=== PATIENT | female | born 1990 | race Caucasian/White ===

== ENCOUNTER 2017-03-12 05:00 | Inpatient (IN) ==
[2017-03-12] MEDS ORDERED: Naloxone 0.4 MG/ML INJ IVP PRN ×2 (05:20→23:22)
[2017-03-12] MEDS ORDERED: Famotidine 20 MG/2 ML VIAL IVP PRN (05:20)
[2017-03-12] MEDS ORDERED: miSOPROStol 25 MCG TABLET PO PRN (05:20)
[2017-03-12] MEDS ORDERED: Metoclopramide 10 MG/2 ML VIAL IVP PRN (05:20)
[2017-03-12] MEDS ORDERED: *HR* Nalbuphine 20 MG/ML AMPUL IVP PRN (05:20)
[2017-03-12] MEDS ORDERED: Ringers Solution, Lactated 1,000 ML IVC SCH (05:30)
[2017-03-12 05:56] LABS: Basophils # 0.1 K/mcL (0.0-0.2); Basophils % 0.5 %; Eosinophils # 0.2 K/mcL (0.0-0.6); Eosinophils % 1.4 %; Hematocrit 44.4 % (35.3-44.9); Hemoglobin 15.3 g/dL (11.5-15.4); Immature Granulocytes % 0.6 % (0-4); Immature Platelets 8.3 % (1.1-6.1); Lymphocytes # 2.3 K/mcL (0.6-4.6); Mean Corpuscular HGB Conc 34.5 g/dL (31.6-35.5); Mean Corpuscular Hemoglobin 30.9 pg (28.0-33.3); Mean Corpuscular Volume 89.7 fL (83.0-100.0); Monocytes # 0.9 K/mcL (0.0-1.3); Monocytes % 7.8 %; Neutrophils # 7.6 K/mcL (1.6-8.9); Platelet Count 166 K/mcL (140-400); Red Blood Count 4.95 M/mcL (3.82-4.97); Red Cell Distribution Width 13.4 % (11.5-14.5); Segmented Neutrophils % 68.7 %
[2017-03-12 06:05] LABS: Amphetamine Screen,Urine Negative ng/mL (Cutoff=1000); Barbiturate Screen,Urine Negative ng/mL (Cutoff=200); Benzodiazepines Screen,Urine Negative ng/mL (Cutoff=200); Cannabinoid Screen,Urine Positive ng/mL (Cutoff = 50); Cocaine Screen,Urine Negative ng/mL (Cutoff= 300); Opiate Screen,Urine Negative ng/mL (Cutoff=300); Phencyclidine Screen,Urine Negative ng/mL (Cutoff=25)
[2017-03-12 06:08] LABS: Alanine Aminotransferase 13 Units/L (7-52); Aspartate Amino Transferase 27 Units/L (13-39); BUN/Creatinine Ratio 14 (6-26); Blood Urea Nitrogen 13 mg/dL (6-20); Lactate Dehydrogenase 230 Units/L (140-271); Uric Acid 6.5 mg/dL (2.3-7.6); eGFR For African Americans > 60 (> 60); eGFR For Non-African Americans > 60 (> 60)
--- NOTE | 2017-03-12 09:11 | OB/GYN History & Physical ---
Date of Encounter: 03/12/17 Time of Encounter: 09:06 Assessment and Plan (1) 40 weeks gestation of Current visit: Yes Status: Acute Induction of labor (2) Chronic hypertension affecting Current visit: Yes Status: Acute Blood pressures exacerbated on arrival. Controlled with increased dose of labetalol. PIH labs normal. Close observation for breakthrough preeclampsia. If elevated pressures continue, patient will need magnesium prophylaxis (3) Gestational diabetes mellitus (GDM) affecting first Current visit: Yes Status: Acute The patient has been well controlled on diet (4) Tobacco dependence Current visit: Yes Status: Acute Patient has been advised on smoking cessation and has decreased the amount of tobacco use but has been unable to quit. She is interested in a nicotine patch (5) Marijuana use Current visit: Yes Status: Acute Patient does not admit to marijuana use when she asked drug screening questions in front of family. Her tox screen is positive for marijuana. The patient has been advised of the cord stat process and will get a social work consult History of Present Illness Chief complaint: IOL @ 40w1d CHTN/GDM HPI: Ms. Hutchins is a 26 year old female G!P0 at 40 weeks and 1 day who presents to labor and delivery for induction of labor. Her has been complicated by chronic hypertension and diet-controlled gestational diabetes, tobacco use, and short maternal stature. On arrival she reported a new onset of headache and had elevated blood pressures. She reports never having a headache prior to this. She had been taking her labetalol every 12 hours 100 mg. She never had elevated blood pressures before but she was 170's/110's on arrival. She was given 200 mg of labetalol by mouth and her blood pressures have adjusted downward into the normal range. She reports her headache has resolved. She was given by mouth Cytotec per orders and is having contractions but she does not report being uncomfortable with. She reports the fetus has been active and she denies any vaginal bleeding or loss of fluid since her last exam. Past Med Surg Social Fam HX - Past Medical History Attestation: Yes The following information was validated with the patient. Source: patient, old records reviewed Medical history: hypertension Psychiatric history: no psych history - Past Surgical History Surgical History: herniorrhaphy, other ([place] teeth) - Social History Smoking Status: Current every day smoker Packs per day: less than 1/2 pack daily Smokeless Tobacco Status: No Alcohol use: none Drug use: none Occupational status: employed Current living situation: Home - Independent Activity Level: Independent ambulation Recent Out of Country Travel Within the Last 8 Weeks: No Exposure or Possible Exposure to Illness During Travel: No - Family History Mother Hx Family Cardiac Disorders: Yes (HTN) Obstetrical History - Pregnancies : 1 Medications and Allergies Aspirin [Lo-Dose Aspirin EC] 1 tab PO DAILY 03/12/17 [History] Metoprolol [Lopressor] 1 tab PO BID 03/12/17 [History] Vit #108/Iron/FA [ One Tablet] 1 tab PO DAILY 03/12/17 [History ] 3 Allergy/AdvReac Type Severity Reaction Status Date / Time lisinopril AdvReac Dry Mucus Verified 03/12/17 06:01 Membranes Review of System OB All systems PM: reviewed and no additional remarkable complaints except as stated - Constitutional Constitutional ROS IM: weight gain - Gastrointestinal Gastrointestinal: heartburn - Neurological Nerological: headache(s) Exam - Vital Signs Vital signs: afebrile, VSS, 130s/80s, heart tones CAT1, baseline 130s - Constitutional Constitutional: well developed, well nourished, no acute distress, average body habitus - HEENT HEENT: Normocephaly, Mucus Membranes Moist - Neck Neck exam: normal inspection, supple, trachea midline - Lungs Respiratory exam: CTAB - Cardiovascular Cardiovascular exam: RRR - Breasts Breast: bilateral: normal (Gravid) - Abdomen Abdomen: Present: bowel sounds normal, gravid, non tender - Extremities Extremities exam: normal inspection, warm Deep Tendon Reflex Grade: 3+ Normal But Brisk - Vulva Vulva: bilateral: normal - Vagina Vagina: Present: normal moisture - Cervix Dilation: 1 (A Rivera balloon catheter was attempted to be placed but was unsuccessful. Patient tolerated well) Effacement: 90 Station: -1 - Anus/Rectum Anus/Rectum: Present: normal perianal skin Results Result Diagrams: 03/12/17 05:40 03/12/17 05:40 Abnormal lab results Immature Plt Fraction 8.3 % (1.1-6.1) H 03/12/17 05:40 U Marijuana (THC) Screen Positive ng/mL (Cutoff = 50) H 03/12/17 05:40 All other labs normal. - VTE Reasons for not Prescribing Prophylaxis: Treatment not Indicated - Low risk for VTE
[2017-03-12] MEDS: Famotidine 20 MG/2 ML VIAL IVP SCH ×2 (09:15→20:41)
[2017-03-12] MEDS ORDERED: Calcium Gluconate 1,000 MG/10 ML VIAL IVPB PRN (09:47)
--- NOTE | 2017-03-12 09:57 | OB Labor Progress Note ---
Date of Encounter: 03/12/17 Time of Encounter: 09:53 Labor Progress Note - Subjective Subjective: Patient comfortable and denies headaches, blurred vision or epigastric pain but does report acid reflux - Vital Signs Vital Signs: Afebrile, blood pressure 140/105 - Heart Tones Heart Tones: 120s, CAT 1 - [place]: Contractions are every 1-2 minutes after by mouth Cytotec given at 06:16 - Interventions Interventions: 40 week 1 day induction of labor for chronic hypertension with superimposed preeclampsia, gestational diabetes, tobacco use, tox screen positive for marijuana. - Plan Plan: Patient has been advised as to her tox screen status. She reports having used 2 months ago at one time when she was extremely anxious. She reports not using since and she is very upset about her screen being positive. She has been educated as to the cord stat process and the need for social work consultation with her. If the Court status positive she is aware that he will be reported to [facility] protective services. She is visibly upset and tearful about this. She does not want her family to know at this time. Given her elevated blood pressures and her anxiety at this point I am going to start magnesium sulfate for seizure prophylaxis and continue to keep close monitoring of her blood pressures. Continue induction of labor
[2017-03-12] MEDS: Magnesium Sulfate 20 gm/500mL 20 GM/500 ML IV.SOLN IVC SCH ×2 (10:02→19:59)
[2017-03-12] MEDS: D5% in 0.45% NACL 1,000 ML IVC SCH ×2 (10:02→20:43)
--- NOTE | 2017-03-12 11:43 | OB Labor Progress Note ---
Date of Encounter: 03/12/17 Time of Encounter: 10:55 Labor Progress Note - Subjective Subjective: Patient so comfortable but is reporting the contractions feel more intense. She is not requesting an epidural at this time - Vital Signs Vital Signs: Blood pressures 130s over 80s, afebrile - Cervix Cervix: 1 externally 2-3 internal os/90% effaced, 0 station - Heart Tones Heart Tones: 120s baseline, CAT 1 - [place]: Contractions every one to 2 minutes, Cytotec from 0616 - Interventions Interventions: 40 week 1 day IUP for induction of labor with preeclampsia now on magnesium - Plan Plan: No cervical change. Contractions continue. We will continue monitoring patient per protocol with magnesium. Recheck in 2 hours. If no cervical change , then we will retry [place] or amniotomy with IUPC, whichever seems to be best plan of care at that time. Patient aware of plan of care and agrees
--- NOTE | 2017-03-12 12:07 | Anesthesia Evaluation PreOp ---
Date of Encounter: 03/12/17 Time of Encounter: 12:05 - Past History Planned Operation: BG Cardiac History: Denies any Significant Hx Pulmonary History: Smoker, Pack/yr (3pk/yr) [employer] History: Denies Any Significant HX Other Medical History: Diabetes Type II (Gestational), Other (PIH) Anesthesia History: No Prior Anesthetic Complications, Past Anesthesia (wisdom teeth extraction, Left inguinal hernia repair) : Yes Alcohol Use: none Drug use: none Medications and Allergies Aspirin [Lo-Dose Aspirin EC] 1 tab PO DAILY 03/12/17 [History] Metoprolol [Lopressor] 1 tab PO BID 03/12/17 [History] Vit #108/Iron/FA [ One Tablet] 1 tab PO DAILY 03/12/17 [History ] 3 Allergy/AdvReac Type Severity Reaction Status Date / Time lisinopril AdvReac Dry Mucus Verified 03/12/17 06:01 Membranes - Meds/Allergy Pre-op Review Medications Reviewed: Yes Allergies Reviewed: Yes Beta Blockers on Current Med List: Yes If Beta Blockers taken, Date/Time (Last Dose taken): 03/12 0751 Anesthesia Results - Labs 03/12/17 05:40 03/12/17 05:40 Anesthesia Exam BP 125/70 P 86 R 17 T 97.9 Height: 4'11" Weight: 65.4kg NPO (# of Hours): 7 hrs solids Pain Scale: 0 Pain Scale Used: Numeric (1 - 10) - HEENT Pupil (Motor): Pupils equal Mallampati: II Teeth: Normal Oral Opening: Greater than 3 - [employer] LOC: Oriented [employer] Motor: Normal RUE, Normal LUE, Normal RLE, Normal LLE, Normal Face [employer] Sensory: Normal: RUE, LUE, RLE, LLE, Face - Cardiac Rhythm: Regular Murmur: None JVD: No Carotid Bruit: No - Pulmonary Breath Sounds: bilateral Clear Respiratory Effort: Symmetrical Anesthesia Assess/Plan ASA Score: 2
--- NOTE | 2017-03-12 13:05 | OB Labor Progress Note ---
Date of Encounter: 03/12/17 Time of Encounter: 13:03 Labor Progress Note - Subjective Subjective: The patient reports feeling better now. She thinks it is because her blood pressure is down. She is not uncomfortable with her contractions - Vital Signs Vital Signs: Afebrile, vital signs stable blood pressure 113/70 - Cervix Cervix: 1 external, 2-3 internal, 90%, 0, vertex - Heart Tones Heart Tones: 120s, CAT 1 - [place]: Contractions have spaced out and are every 5-10 minutes without any second dose or further induction agents after her first dose of Cytotec - Interventions Interventions: 40 week 1 day IOL for chronic hypertension with superimposed preeclampsia known magnesium and gestational diabetes diet controlled with tobacco use and talks positive marijuana - Plan Plan: No significant change in cervical exam. Previously unable to place a Rivera balloon in the cervix. Amniotomy performed and IUPC placed. Clear fluid seen, small amount. Patient tolerated well. I will continue to monitor labor pattern and augment if needed with Pitocin. Blood pressure well controlled currently on magnesium and labetalol
[2017-03-12] MEDS ORDERED: Acetaminophen 325 MG TABLET PO PRN (15:07)
[2017-03-12] MEDS: Oxytocin 20 units/ LR 1000 mL 20 UNIT/1,000 ML BAG IVC SCH (15:22)
[2017-03-12] MEDS: Ondansetron 4 MG/2 ML VIAL IVP PRN (15:57)
--- NOTE | 2017-03-12 20:02 | OB Labor Progress Note ---
Date of Encounter: 03/12/17 Time of Encounter: 19:59 Labor Progress Note - Subjective Subjective: The pt feels that her contractions are stronger but are not close enough together that she wants pain medications. She denies LUCAS, BV or epigastric pain. - Vital Signs Vital Signs: Afeb, VSS. BP 130s/80s. UO clear and copious - Cervix Cervix: 2/90/0 - Heart Tones Heart Tones: 110s baseline, CAT1 - [place]: q3-4' x 75mm Hg on 8 mU pit - Interventions Interventions: 40w1d IUP for IOL , CHTN w/ superimposed PreE, GDM - Plan Plan: Cont IOL and magnesium
[2017-03-12] MEDS ORDERED: EPHEDrine 50 MG/ML VIAL IVP PRN (23:22)
[2017-03-12] MEDS ORDERED: Ondansetron 4 MG/2 ML VIAL IVP PRN (23:22)
[2017-03-12] MEDS ORDERED: *HR* FentaNYL (PF) 100 MCG/2 ML VIAL EP ONE (23:22)
[2017-03-12] MEDS ORDERED: Bupivacaine-MPF 0.25% 10 ML VIAL EP ONE (23:22)
[2017-03-12] MEDS ORDERED: Bupivacaine-MPF 0.25% 10 ML VIAL ONE (23:26)
[2017-03-12] MEDS ORDERED: Epidural Premix (fent/bupiv) 110 ML EP ONE (23:28)
[2017-03-12] MEDS ORDERED: Epidural Premix (fent/bupiv) 110 ML EP SCH (23:30)
--- NOTE | 2017-03-13 00:11 | Anesthesia Procedures ---
Date of Encounter: 03/13/17 Time of Encounter: 23:29 Procedures: Anesthesia - Epidural/Spinal Patient ID/Chart reviewed: Yes Patient examined: Yes OB Eval: Gestational age: 39 OB Eval: : 1 OB Eval: Hx Para: 0 OB Eval: Dilated at (cm): 3 OB Eval: Contractions: Non-stressed pattern Consent Obtained: No Supplemental Oxygen: None/Room Air Site Prep: Aseptic Technique, Sterile prep and drape, Povidone-Iodine 1% Patient position: upright Local Anesthetic: Lidocaine 1% Amount of Local Anesthetic used: 3 Touhy Needle Gauge: 18 Touhy Needle Depth (cm): 6 Catheter Depth at Skin (cm): 15 Test Dose (1.5% Lido + Epi): Volume given (mls): 3 Test Dose Result: Negative Loading Dose: 0.25% Marcaine (mls): 10 Loading Dose: Fentanyl (mcg): 100 Loading Dose Administered: Thru Catheter Infusion Med: 0.125% Bupivacaine w/ 2 mcg/ml Fentanyl Infusion Rate (mls/hr): [address]: Tegaderm, Tape Interspace Used: L4-L5 Loss of Resistance (SUZI): Yes Blood: No CSF: No Paresthesia: No Procedure: BG placed 1st pass without any immediate noted complications. VSS thoughout Vitals + FHT's: 2329 BP 164/99 P 94 2354 BP 132/84 P 89
[2017-03-13] MEDS: Ondansetron 4 MG/2 ML VIAL IVP PRN (02:59)
[2017-03-13] MEDS ORDERED: MetroNIDAZOLE 500 MG/100 ML 500 MG/100 ML BAG IVPB ONE (03:44)
[2017-03-13] MEDS ORDERED: cefOXitin 2,000 MG in Water for inj. (sterile) 20 ML 10 ML IVP ONE (03:44)
--- NOTE | 2017-03-13 03:50 | OB Labor Progress Note ---
Date of Encounter: 03/13/17 Time of Encounter: 03:48 Labor Progress Note - Subjective Subjective: Called due to patient having bloody urine and late decelerations by RN. She reports the patient is lethargic and has been vomiting. Pitocin is at 18. Blood pressures are 100s over 60s, patient is comfortable with an epidural. The urine output has decreased but is adequate and is now appearing bloody. - Vital Signs Vital Signs: Afebrile, vital signs stable. Patient is sleepy but arousable and appropriate. UO 140cc - Cervix Cervix: 3/80/-1, vertex with caput and the cervix is becoming edematous - Heart Tones Heart Tones: 130s baseline, CAT 2. Accels with scalp stim, good long-term variability. - [place]: Pitocin has been discontinued. Contractions are still 75 mmHg every 3-4 minutes and appear to be spacing out - Interventions Interventions: 40 week 2 day IUP with failure to progress, arrest at 3 cm with severe preeclampsia and a category 2 tracing. - Plan Plan: Magnesium level stat, Pitocin discontinued, magnesium level discontinued. Consent obtained for primary due to failure to progress.
[2017-03-13] MEDS ORDERED: *HR* Oxytocin 10 UNIT/ML VIAL IM ONE (04:01)
[2017-03-13] MEDS ORDERED: Morphine Sulfate/PF 5mg/10mL Vial ONE (04:01)
[2017-03-13] MEDS ORDERED: Lidocaine -MPF 2% 5 ML VIAL ONE (04:02)
[2017-03-13] MEDS ORDERED: *HR* HYDROmorphone (PF) 1 MG/ML SYRINGE IVP PRN (04:27)
[2017-03-13] MEDS ORDERED: *HR* Promethazine 25 MG/ML VIAL IVP PRN (04:27)
[2017-03-13] MEDS ORDERED: *HR* FentaNYL (PF) 100 MCG/2 ML VIAL ONE (04:42)
--- NOTE | 2017-03-13 05:21 | OB/GYN Procedure Note ---
Section - Date of procedure: 03/13/17 Preop diagnosis: arrest of dilation, category 2 FHT tracing, other (Chronic hypertension with superimposed Severe preeclampsia, gestational diabetes diet controlled, short maternal stature less than 5 feet) Post-op diagnosis: same Procedure: section, primary low transverse Surgeon: Betty Duarte Estimated blood loss (cc): 300 Was there an bacteriology research assistant present: No Anesthesiologist: Lisa Block Gamewell Operator: Christian Marrufo Anesthesia Type: Epidural section complications: none Disposition: L&D Recovery Room Specimens: Placenta, Cord segment - Infant (s) A Delivery Date: 03/13/17 Infant Delivery Time: 04:25 Presentation: vertex Position: unknown Route of delivery: other Gender: Female Viability: Viable Pounds: 6 Ounces: 7 at 1 minute: 8 at 5 minutes: 10 Placenta: spontaneous, uterine exploration Cord: nuchal cord (x2), 3 umbilical vessels, nuchal reduced - Narrative Narrative: Patient was taken to the operating room and prepped and draped in usual sterile fashion. EPCDs were placed. Timeout was completed. Anesthesia was tested to be adequate. A Pfannenstiel skin incision was made with a scalpel and sharply dissected down to the fascia. The fascia was incised in the midline and extended bilaterally with scissors. 2 straight [place] clamps were placed on the inferior fascial edge and the fascia was bluntly and sharply dissected away from the rectus muscles. This was repeated superiorly. The rectus muscles were then bluntly and sharply bissected in the midline. Peritoneum was bluntly entered and extended superiorly and inferiorly. Bladder blade was placed to protect the bladder. Vesicouterine peritoneum was incised and reflected inferiorly. Bladder blade was replaced to protect the bladder. A low transverse incision was then made with a scalpel and sharply dissected down to the amnion. This was then bluntly extended bilaterally. The amnion was then bluntly entered. This was followed by the vertex delivery of a vigorous female infant weighing 6#7oz, with Apgars of 8 at 1 minute and 10 at 5 minutes. The infant was suctioned on the operating field, cord was clamped and cut after a delay, and the was handed to the nursery care team. Placenta was spontaneously extracted intact. Uterine cavity was digitally inspected and then wiped clean with a moist lap sponge. Clamps were placed on the uterine angles and the uterine incision was closed using 0 Vicryl suture in a running locking fashion. A second imbricating layer completed the uterine closure. Gloves were changed. Tubes and ovaries were inspected and found to be grossly normal. The abdomen was irrigated copiously with sterile water. Peritoneal edges and rectus muscles were inspected and hemostasis achieved. The fascia was then closed using an 0 PDS loop in a running, nonlocking fashion. Subcutaneous tissue was irrigated with sterile water and good hemostasis was achieved. Skin was closed with 4-0 Monocryl in a subcuticular fashion. All sponge and instrument counts were correct at the end of the procedure. The Rivera was noted to be draining dark urine unchanged from preop, at the end of the procedure. The patient was taken to the recovery room in stable condition.
[2017-03-13] MEDS ORDERED: Famotidine 20 MG/2 ML VIAL IVP SCH (06:00)
[2017-03-13] MEDS: Oxytocin 20 units/ LR 1000 mL 20 UNIT/1,000 ML BAG IVC SCH ×2 (07:49→16:02)
[2017-03-13] MEDS ORDERED: Sennosides 8.6 MG TABLET PO PRN (07:50)
[2017-03-13] MEDS ORDERED: Ondansetron 4 MG/2 ML VIAL IVP PRN (07:50)
[2017-03-13] MEDS ORDERED: Simethicone 80 MG TAB.CHEW PO PRN (07:50)
[2017-03-13] MEDS ORDERED: Metoclopramide 10 MG/2 ML VIAL IVP PRN (07:50)
[2017-03-13] MEDS: Prenatal Vit/FA 1 EACH TABLET PO SCH (09:38)
[2017-03-13] MEDS: *HR* OxyCODONE/APAP 5/325 TABLET PO PRN ×3 (09:38→20:24)
[2017-03-13] MEDS: Famotidine 20 MG TABLET PO SCH ×2 (09:38→20:24)
[2017-03-13] MEDS: Ibuprofen 600 MG TABLET PO PRN (16:55)
--- NOTE | 2017-03-13 18:44 | Anesthesia Evaluation Post Op ---
Date of Encounter: 03/13/17 Time of Encounter: 18:43 - Vital Signs Vital Signs: Vital Signs/O2 Sat, Most Current Temp Pulse Resp BP Pulse Ox 98.1 F 70 16 144/90 96 03/13/17 16:00 03/13/17 16:00 03/13/17 16:00 03/13/17 16:00 03/13/17 10:10 - Lungs Lungs: Clear Ascult./Percussion - Airway Airway: Non-obstructed - Cardiovascular Regular Rate - Mental Status Mental Status: Alert & Oriented, Answers Appropriately - Pain Pain Scale: 0 - Nausea Vomiting Nausea Vomiting: Not Present - Hydration Hydration: Tolerates oral liquids, Rivera catheter - Discharge PostOp Status: Transfer Patient to floor
[2017-03-14] MEDS: Oxytocin 20 units/ LR 1000 mL 20 UNIT/1,000 ML BAG IVC SCH (00:37)
[2017-03-14] MEDS: Ibuprofen 600 MG TABLET PO PRN ×4 (04:44→21:29)
[2017-03-14] MEDS: *HR* OxyCODONE/APAP 5/325 TABLET PO PRN ×5 (04:45→21:29)
[2017-03-14 07:11] LABS: Alanine Aminotransferase 14 Units/L (7-52); Aspartate Amino Transferase 46 Units/L (13-39); BUN/Creatinine Ratio 14 (6-26); Blood Urea Nitrogen 12 mg/dL (6-20); Lactate Dehydrogenase 401 Units/L (140-271); Uric Acid 6.1 mg/dL (2.3-7.6); eGFR For African Americans > 60 (> 60); eGFR For Non-African Americans > 60 (> 60)
[2017-03-14 07:45] LABS: Basophils % 0.3 %; Eosinophils # 0.1 K/mcL (0.0-0.6); Eosinophils % 0.7 %; Hematocrit 37.5 % (35.3-44.9); Immature Granulocytes % 0.4 % (0-4); Lymphocytes # 1.5 K/mcL (0.6-4.6); Lymphocytes % 11.8 %; Mean Corpuscular HGB Conc 33.3 g/dL (31.6-35.5); Mean Corpuscular Hemoglobin 30.5 pg (28.0-33.3); Mean Corpuscular Volume 91.5 fL (83.0-100.0); Mean Platelet Volume 10.8 fL (9.4-12.4); Monocytes % 7.4 %; Neutrophils # 10.3 K/mcL (1.6-8.9); Platelet Count 115 K/mcL (140-400); Segmented Neutrophils % 79.4 %
[2017-03-14 07:51] LABS: Hemoglobin 12.5 g/dL (11.5-15.4)
[2017-03-14] MEDS: Famotidine 20 MG TABLET PO SCH (07:53)
[2017-03-14] MEDS: Prenatal Vit/FA 1 EACH TABLET PO SCH (07:53)
--- NOTE | 2017-03-14 09:04 | OB/GYN Progress Note ---
Date of Encounter: 03/14/17 Time of Encounter: 09:03 - Assessment and Plan (1) Status post primary low transverse section Current Visit: Yes Status: Acute Meeting postop milestones Anticipate discharge home tomorrow. (2) Chronic hypertension affecting Current Visit: Yes Status: Acute Monitor blood pressure closely Consider repeat PIH labs if blood pressure does not reduce with medications. Subjective - Subjective Principal diagnosis: S/P primary Interval history: S/P primary C/S day 1 Patient c/o pain in incision; Encouraged to ask nursing staff for ordered medication. Use Motrin first and percocet for breakthrough pain VSS; blood pressure elevated, had not had labetalol this AM, in pain, asymptomatic Voiding without difficulty, passing flatus, tolerating regular diet Lochia light and without clots Bottle feeding; discussed breast care post delivery for non- mothers Discussed risks of PPD Anticipate discharge home tomorrow. Patient reports: appetite normal, voiding normally, pain well controlled, ambulating normally : doing well, bottle feeding Objective - Vital Signs Latest vital signs: Vital Signs Temp Pulse Resp BP Pulse Ox 03/14/17 08:21 98.4 F 85 18 157/96 96 03/14/17 05:09 98.3 F 73 20 132/88 96 03/14/17 00:35 98.0 F 72 16 130/47 96 03/13/17 20:40 16 135/82 03/13/17 20:05 97.7 F 77 16 157/102 97 03/13/17 16:00 98.1 F 70 16 144/90 03/13/17 11:00 98.1 F 89 16 123/75 03/13/17 10:10 98.8 F 87 18 142/81 96 Intake and Output 03/13/17 03/14/17 03/14/17 23:59 07:59 15:59 Intake Total 2500 / 2500 1720 / 1720 Output Total 1200 / 1200 1400 / 1400 420 / 420 Balance 1300 / 1300 320 / 320 -420 / -420 Intake: IV Fluids 1000 / 1000 1520 / 1520 Pitocin 20 unit In 1,000 ml @ 1000 / 1000 1520 / 1520 125 mls/hr IVC .Q8H [facility] Rx#: [id number] Oral 1500 / 1500 200 / 200 Output: Urine 420 / 420 Catheter 1200 / 1200 1400 / 1400 Other: Meal Dinner Percent of Meal Consumed 100% Weight 61.8 kg Patient Weight 03/14/17 23:59 Weight 61.8 kg - Exam Lungs: bilateral: normal Chest: Normal S1, Normal S2 Extremities: Present: normal, edema (1+) Abdomen: Present: normal appearance, soft. Absent: gravid, tenderness Incision: Present: normal, dry (Steri strips dry and intact; old dried dark blood noted to strips. Patient to shower today), intact Uterus: Present: normal, firm Fundal Height: 0 (@ U) - Labs Labs: Laboratory Results - last 24 hr 03/14/17 03/14/17 06:44 06:44 WBC 13.0 H RBC 4.10 Hgb 12.5 D Hct 37.5 MCV 91.5 MCH 30.5 MCHC 33.3 RDW 14.0 Plt Count 115 L MPV 10.8 Immature Gran % 0.4 Seg Neutrophils % 79.4 Lymphocytes % 11.8 Monocytes % 7.4 Eosinophils % 0.7 Basophils % 0.3 Neutrophils # 10.3 H Lymphocytes # 1.5 Monocytes # 1.0 Eosinophils # 0.1 Basophils # 0.0 BUN 12 Creatinine 0.86 Est GFR ( Amer) > 60 Est GFR (Non-Af Amer) > 60 BUN/Creatinine Ratio 14 Uric Acid 6.1 AST 46 H ALT 14 Lactate Dehydrogenase 401 H
[2017-03-15] MEDS: Ibuprofen 600 MG TABLET PO PRN (04:23)
[2017-03-15] MEDS: *HR* OxyCODONE/APAP 5/325 TABLET PO PRN (04:24)
[2017-03-15] MEDS: Prenatal Vit/FA 1 EACH TABLET PO SCH (07:50)
[2017-03-15] MEDS: Famotidine 20 MG TABLET PO SCH (07:50)
[2017-03-15 08:24] VITALS: BP 130/91
--- NOTE | 2017-03-15 10:23 | Discharge Summary ---
Date of Encounter: 03/15/17 Time of Encounter: 10:35 - Discharge Diagnosis (1) Chronic hypertension affecting Priority: Secondary Status: Acute Comments: BP normal to mild range post-op. Well controlled on Labetalol. Pt to follow-up for BP check in 1 week. (2) Gestational diabetes mellitus (GDM) affecting first Priority: Secondary Status: Acute Comments: Pt will need 2 hour GTT in 6 weeks (3) Tobacco dependence Priority: Secondary Status: Acute (4) Status post primary low transverse section Priority: Secondary Status: Acute Comments: Pt meeting post-op milestones. She is requesting discharge home this am. (5) Marijuana use Priority: Secondary Status: Acute - Discharge Medications Prescriptions: OxyCODONE/APAP 5/325 [Percocet 5/325 MG] 1 each PO Q4HR PRN #28 tablet PRN Reason: Moderate pain 4-6 Ibuprofen [Motrin] 600 mg PO Q6HR PRN #60 tablet PRN Reason: Mild To Moderate Pain Docusate [Colace] 100 mg PO BID #10 capsule Labetalol [Trandate] 200 mg PO TID #180 tablet Home Medications: Aspirin [Lo-Dose Aspirin EC] 1 tab PO DAILY 03/12/17 [History] Vit #108/Iron/FA [ One Tablet] 1 tab PO DAILY 03/12/17 [History ] Docusate [Colace] 100 mg PO BID #10 capsule 03/15/17 [Rx] Famotidine [Pepcid] 20 mg PO BID tablet 03/15/17 [Rx] Ibuprofen [Motrin] 600 mg PO Q6HR PRN #60 tablet 03/15/17 [Rx] Labetalol [Trandate] 200 mg PO TID #180 tablet 03/15/17 [Rx] OxyCODONE/APAP 5/325 [Percocet 5/325 MG] 1 each PO Q4HR PRN #28 tablet 03/15/17 [Rx] Allergies/Adverse Reactions: 3 Allergy/AdvReac Type Severity Reaction Status Date / Time lisinopril AdvReac Dry Mucus Verified 03/12/17 06:01 Membranes Data Procedures and tests throughout hospitalization: Laboratory Tests 03/12/17 03/12/17 03/12/17 05:40 05:40 05:40 WBC 11.1 RBC 4.95 Hgb 15.3 Hct 44.4 MCV 89.7 MCH 30.9 MCHC 34.5 RDW 13.4 Plt Count 166 MPV 11.0 Immature Gran % 0.6 Seg Neutrophils % 68.7 Lymphocytes % 21.0 Monocytes % 7.8 Eosinophils % 1.4 Basophils % 0.5 Neutrophils # 7.6 Lymphocytes # 2.3 Monocytes # 0.9 Eosinophils # 0.2 Basophils # 0.1 Immature Plt Fraction 8.3 H BUN 13 Creatinine 0.91 Est GFR ( Amer) > 60 Est GFR (Non-Af Amer) > 60 BUN/Creatinine Ratio 14 POC Glucose Uric Acid 6.5 Magnesium AST 27 ALT 13 Lactate Dehydrogenase 230 Urine Opiates Screen Negative Ur Barbiturates Screen Negative Ur Phencyclidine Scrn Negative Ur Amphetamines Screen Negative U Benzodiazepines Scrn Negative Urine Cocaine Screen Negative U Marijuana (THC) Screen Positive H 03/12/17 03/13/17 03/13/17 21:38 03:52 06:07 WBC RBC Hgb Hct MCV MCH MCHC RDW Plt Count MPV Immature Gran % Seg Neutrophils % Lymphocytes % Monocytes % Eosinophils % Basophils % Neutrophils # Lymphocytes # Monocytes # Eosinophils # Basophils # Immature Plt Fraction BUN Creatinine Est GFR ( Amer) Est GFR (Non-Af Amer) BUN/Creatinine Ratio POC Glucose 99 H Uric Acid Magnesium > 8.0 H 5.7 H AST ALT Lactate Dehydrogenase Urine Opiates Screen Ur Barbiturates Screen Ur Phencyclidine Scrn Ur Amphetamines Screen U Benzodiazepines Scrn Urine Cocaine Screen U Marijuana (THC) Screen 03/14/17 03/14/17 06:44 06:44 WBC 13.0 H RBC 4.10 Hgb 12.5 D Hct 37.5 MCV 91.5 MCH 30.5 MCHC 33.3 RDW 14.0 Plt Count 115 L MPV 10.8 Immature Gran % 0.4 Seg Neutrophils % 79.4 Lymphocytes % 11.8 Monocytes % 7.4 Eosinophils % 0.7 Basophils % 0.3 Neutrophils # 10.3 H Lymphocytes # 1.5 Monocytes # 1.0 Eosinophils # 0.1 Basophils # 0.0 Immature Plt Fraction BUN 12 Creatinine 0.86 Est GFR ( Amer) > 60 Est GFR (Non-Af Amer) > 60 BUN/Creatinine Ratio 14 POC Glucose Uric Acid 6.1 Magnesium AST 46 H ALT 14 Lactate Dehydrogenase 401 H Urine Opiates Screen Ur Barbiturates Screen Ur Phencyclidine Scrn Ur Amphetamines Screen U Benzodiazepines Scrn Urine Cocaine Screen U Marijuana (THC) Screen Date of admission: 03/12/17 05:19 Primary care physician: Dania Majano, Consults: 03/13/17 07:50 Consult to Hand Worker (W&C) [CONS] Routine Reason For Exam: Reason for SW Consult: Tox screen positive for THC Discharging clinician: Karen West Anticipated date of discharge: 03/15/17 - Patient Status Disposition: Home, Self-Care Condition: Good Functional capacity at discharge: independent ambulation Overall status at discharge: patient is progressing back to baseline - Discharge Instructions Follow Up With: Dania Majano CNP [Primary Care Provider] - Betty Duarte MD [Partnered Physician] - Additional Instructions: 1 week follow-up for blood pressure check. 2 week follow-up with Dr. Duarte. - Diet and Activity Activity: increase activity as tolerated Diet: advance to your usual diet Hospital Course Reason for admission: induction of labor Delivery: section Episiotomy: none Laceration: none Other procedures: none complications: none Discharge diagnosis: IUP at term delivered, post term preg-delivered [place] baby: female Hospital course: Ms. Hutchins is a 26 year old female G!P0 at 40 weeks and 1 day who presents to labor and delivery for induction of labor. Her has been complicated by chronic hypertension and diet-controlled gestational diabetes, tobacco use, and short maternal stature. Patient presented with high BP and a headache which resolved with labetalol. Patient was induced with cytotec. Due to arrest of dilation and category 2 FHT patient was taken for a . Patient recovered well [id number]. Blood pressures remained elevated and patient was placed on labetalol 200mg TID which has controlled BPs. Patient will return to the office for a 1 week BP check. OARRS was checked and consistent. Patient was given instructions and her questions were answered. F/u scheduled in [address] Duarte. Date of procedure: 03/13/17 Preop diagnosis: arrest of dilation, category 2 FHT tracing, other (Chronic hypertension with superimposed Severe preeclampsia, gestational diabetes diet controlled, short maternal stature less than 5 feet) Post-op diagnosis: same Procedure: section, primary low transverse Surgeon: Betty Duarte Estimated blood loss (cc): 300 Was there an clinical data assistant present: No Anesthesiologist: Lisa Block Tool Lapper Hand: Christian Marrufo Anesthesia Type: Epidural section complications: none Disposition: L&D Recovery Room Specimens: Placenta, Cord segment - Infant (s) Infant A Infant Delivery Date: 03/13/17 Delivery Time: 04:25 Presentation: vertex Position: unknown Route of delivery: other Gender: Female Viability: Viable Pounds: 6 Ounces: 7 at 1 minute: 8 at 5 minutes: 10 Placenta: spontaneous, uterine exploration Cord: nuchal cord (x2), 3 umbilical vessels, nuchal reduced Time Attestation: Total time spent providing and/or coordinating discharge services: - VTE Reasons for not Prescribing Prophylaxis: Treatment not Indicated - Low risk for VTE Documentation of Mechanical Device: Intermittent pneumatic compression device Exam - Constitutional Vitals: Temp Pulse Resp BP Pulse Ox 98 F 87 16 130/91 97 03/15/17 08:23 03/15/17 08:23 03/15/17 08:23 03/15/17 08:23 03/15/17 04:09 General appearance IM: cooperative, no acute distress - Respiratory Respiratory exam: Present: CTAB - Cardiovascular Cardiovascular exam IM: Present: RRR - GI/Abdominal GI/Abdominal exam IM: soft Incision: normal, dry, intact, other (steri-strips in place and dry ) - Uterine Tone: Firm Uterus Position: 2 Fingers Below Umbilicus - Extremities Exam Extremities exam IM: Present: normal inspection - Neurological Exam Neurological exam: alert, normal gait
== END 2017-03-15 11:50 | disposition home or self-care (01) | DRG 765 ==
LOC: 1NENULAB 05:19 → 1NENUOBS 03-13 07:45
PROVIDERS: ADMIT Advanced Practice Midwife; ATTEND Obstetrics & Gynecology